=== PATIENT | female | born 1960 | race Caucasian/White ===

== ENCOUNTER → 2016-04-07 | Outpatient (CLI) | payer BC ==
--- NOTE | 2016-04-11 07:10 | MM ---
Reason for exam: screening (asymptomatic). Last mammogram was performed 1 year ago. Physical Findings: A clinical breast exam by your physician is recommended on an annual basis and results should be correlated with mammographic findings. MG 3D Screening Mammo W/Cad Bilateral CC and MLO view(s) were taken. Prior study comparison: March 25, 2015, bilateral MG 3d screening mammo w/cad. February 25, 2014, bilateral MG screening mammo w CAD. January 04, 2013, bilateral digital screening mammo w/CAD. February 04, 2011, bilateral digital screening mammo w/CAD. The breast tissue is heterogeneously dense. This may lower the sensitivity of mammography. No significant changes when compared with prior studies. ASSESSMENT: Negative, BI-RAD 1 RECOMMENDATION: Routine screening mammogram of both breasts in 1 year.
== END | disposition home or self-care (01) ==
LOC: RADMAMWWP 16:51
PROVIDERS: ATTEND Obstetrics & Gynecology
DX: Z12.31 Encounter for screening mammogram for malignant neoplasm of breast (principal)
CPT/HCPCS: 77063; G0202

== ENCOUNTER → 2024-07-15 | Outpatient (CLI) | payer BC ==
--- NOTE | 2024-07-15 14:49 | MM ---
Reason for Exam: Screening (asymptomatic). Last mammogram was performed 2 year(s) and 1 month(s) ago. Patient History: Menarche at age 15. First Full-Term at age 19. Postmenopausal. Risk Values: Cheyenne 5 year model risk: 1.0%. NCI Lifetime model risk: 4.6%. Prior Study Comparison: 11/06/2018 Bilateral MG 3D screening mammo w/cad, [facility] . 03/22/2021 Bilateral MG 3D screening mammo w/cad, [facility] . 06/02/2022 Bilateral MG 3D screening mammo w/cad, [facility]. Tissue Density: The breasts are heterogeneously dense, which may obscure small masses. Findings: Analyzed By CAD. There is no suspicious group of microcalcifications or new suspicious mass in either breast. Overall Assessment: Benign, BI-RAD 2 Management: Screening Mammogram of both breasts in 1 year. . Patient should continue monthly self-breast exams. A clinical breast exam by your physician is recommended on an annual basis. This exam should not preclude additional follow-up of suspicious palpable abnormalities. Note on Cheyenne scores and lifetime risk: 1. A Cheyenne score greater than 3% is considered moderate risk. If this is the case, consider specialist referral to assess eligibility for a risk reducing agent. 2. If overall lifetime risk for the development of breast cancer is 20% or higher, the patient may qualify for future screening with alternating mammogram and breast MRI. [facility], , 07/15/2024 2:45 PM. Electronically signed and approved by: Louis Arthur M.D. Radiologis
--- NOTE | 2024-07-15 15:22 | BD ---
EXAMINATION TYPE: Axial Bone Density DATE OF EXAM: 07/15/2024 CLINICAL HISTORY: 63 years old Female. ICD-10 CODE: Z78.0 PRE MENOPAUSAL , Additional History: Height: 61 Weight: 141.1 FRAX RISK QUESTIONS: Alcohol (3 or more units per day): no Family History (Parent hip fracture): no Glucocorticoids (More than 3mos): no (Ex: prednisone, prednisolone, methylprednisolone, dexamethasone, and hydrocortisone). History of Fracture in Adulthood: no Secondary Osteoporosis: 1. Type 1 Diabetes: no 2. Hyperthyroidism: no 3. Menopause before 45: no 4. Malnutrition: no 5. Chronic liver disease: no Rheumatoid Arthritis: no Current Tobacco Use: no RISK FACTORS HISTORY OF: Hip Fracture (Right/Left): no Spine Fracture: no History of Wrist Fracture: no Surgery to Spine/Hip(right/left)/Wrist (right/left): no MEDICATIONS: Thyroid Medications: no Osteoporosis Medications: no EXAM MEASUREMENTS: Bone mineral densitometry was performed using the [employer] System. Bone mineral density as measured about the Lumbar spine is: ----- L1-L4(G/cm2): 1.138 T Score Values are as follows: ----- L1: -0.2 ----- L2: -0.8 ----- L3: -0.6 ----- L4: 0.2 ----- L1-L4: -0.3 Z Score Values are as follows: ----- L1: 1.2 ----- L2: 0.7 ----- L3: 0.8 ----- L4: 1.6 ----- L1-L4: 1.1 Baseline Study Bone mineral density about the R hip (g/cm2): 0.853 Bone mineral density about the L hip (g/cm2): 0.902 T Score values are as follows: -----R Neck: -1.7 -----L Neck: -1.6 -----R Total: 1.2 -----L Total: -0.8 Z Score values are as follows: -----R Neck: -0.4 -----L Neck: -0.2 -----R Total: -0.1 -----L Total: 0.2 Baseline Study FRAX%s: The graph provided illustrates a 9.3% chance for a major osteoporotic fx and a 1.0% chance fo r the hips probability for fx in 10 years time. IMPRESSION: Normal (Values between +1 and -1 indicate normal bone mass). Consider repeating this study in 5 year s or sooner if there is some new clinical indication. NOTE: T-SCORE=SD OF THE YOUNG ADULT MEAN. [facility], , 07/15/2024 3:20 PM
== END | disposition home or self-care (01) ==
LOC: RADMAMWWP 14:23
PROVIDERS: ATTEND Obstetrics & Gynecology
DX: Z12.31 Encounter for screening mammogram for malignant neoplasm of breast (principal); R92.333 Mammographic heterogeneous density, bilateral breasts; M85.89 Other specified disorders of bone density and structure, multiple sites; Z78.0 Asymptomatic menopausal state
CPT/HCPCS: 77063; 77067; 77080